=== PATIENT | female | born 1945 | race Caucasian/White ===

== ENCOUNTER 2017-01-10 09:37 | Emergency (ER) | payer SELFPAY ==
[2017-01-10] MEDS ORDERED: Sodium Chloride 0.9% 10 ML Syringe FLUSH PRN (10:08)
--- NOTE | 2017-01-10 10:13 | EDM.PDOC ---
ED HPI GENERAL MEDICAL PROBLEM - General Chief Complaint: Respiratory Problem Stated Complaint: SHORTNESS OF BREATH Time Seen by Provider: 01/10/17 10:10 Source of Information: Reports: Patient, Family, RN Notes Reviewed History Limitations: Reports: No Limitations - History of Present Illness INITIAL COMMENTS - FREE TEXT/NARRATIVE: 71-year-old female presents emergency department day complaint of shortness of breath, she recently had a 17 [place] flight [place] was evaluated in an urgent care about a week ago for a syncopal event, over this past week she has become progressively more short of breath has had palpitations and will get diaphoretic extremely short of breath with any amount of exertion, has been in [place] for 1 day - Related Data Allergies Allergy/AdvReac Type Severity Reaction Status Date / Time No Known Allergies Allergy Verified 01/10/17 10:17 Home Meds: Home Meds NK [No Known Home Meds] 01/10/17 [History] Past Medical History - Past Health History Medical/Surgical History: Denies Medical/Surgical History Social & Family History - Tobacco Use Smoking Status *Q: Heavy Tobacco Smoker ED ROS GENERAL - Review of Systems Review Of Systems: See Below Constitutional: Reports: Fatigue, Diaphoresis HEENT: Reports: No Symptoms Respiratory: Reports: Shortness of Breath. Denies: Cough, Sputum Cardiovascular: Reports: Dyspnea on Exertion, Palpitations. Denies: Chest Pain GI/Abdominal: Reports: No Symptoms : Reports: No Symptoms Musculoskeletal: Reports: No Symptoms Skin: Reports: No Symptoms Neurological: Reports: No Symptoms ED EXAM, GENERAL - Physical Exam Exam: See Below Free Text/Narrative:: General: Female, moderate discomfort secondary to palpitations, alert and oriented x3 HEENT: head is atraumatic normocephalic, eyes pupils equal round reactive to light, sclera clear no conjunctivitis appreciated. Ears blocked by cerumen bilaterally. Nose no septal deviation, nares are clear, no blood present. Mouth mucosa is dry and pink no erythema or exudate noted in soft palate, tongue is midline uvula is midline, dentition is poor. Neck: Supple no thyromegaly no tracheal deviation. Nodes: Cervical nodes subclavicular nodes nontender no palpable lymphadenopathy noted. Lungs: clear to auscultation bilaterally with symmetrical respirations, no adventitious noise appreciated. CV: Tachycardic rate and rhythm S1 and S2 appreciated no murmurs rubs or gallops noted. Abdomen: Soft, nontender, no palpable masses or organomegaly appreciated, no distention no guarding bowel sounds are present, . Neuro: Cranial nerves II through XII grossly intact Skin: Warm and dry, intact Extremities: No lower extremity edema appreciated, Course - Vital Signs Last Recorded V/S: Last Vital Signs Temp 100.2 F 01/10/17 10:12 Pulse 135 H 01/10/17 12:32 Resp 18 01/10/17 12:46 BP 130/70 01/10/17 12:46 Pulse Ox 99 01/10/17 12:46 - Orders/Labs/Meds Orders: Active Orders 24 hr Category Date Time Status Cardiac Monitoring [RC] .As Directed Care 01/10/17 10:08 Active EKG Documentation Completion [RC] ASDIRECTED Care 01/10/17 10:09 Active Peripheral IV Care [RC] . DIRECTED Care 01/10/17 10:08 Active RT Aerosol Therapy [RC] ASDIRECTED Care 01/10/17 12:20 Active LACTATE DEHYDROGENASE,LDH [CHEM] Stat Lab 01/10/17 10:30 Received URIC ACID [CHEM] Stat Lab 01/10/17 10:30 Received Iopamidol [Isovue-370 (76%)] Med 01/10/17 10:45 Active 100 ml IV . DIRECTED Sodium Chloride 0.9% [Normal Saline] 1,000 ml Med 01/10/17 10:15 Active IV ASDIRECTED Sodium Chloride 0.9% [Normal Saline] 1,000 ml Med 01/10/17 10:30 Active IV ASDIRECTED Sodium Chloride 0.9% [Normal Saline] 100 ml Med 01/10/17 10:45 Active IV ASDIRECTED Sodium Chloride 0.9% [Saline Flush] Med 01/10/17 10:08 Active 10 ml FLUSH ASDIRECTED PRN Peripheral IV Insertion Adult [OM.PC] Stat Oth 01/10/17 10:08 Ordered EKG 12 Lead [EK] Stat Ther 01/10/17 10:09 Ordered Medication Orders Sodium Chloride (Normal Saline) 1,000 mls @ 500 mls/hr IV ASDIRECTED NAYLA Last Admin: 01/10/17 10:23 Dose: 500 mls/hr Sodium Chloride (Normal Saline) 1,000 mls @ 500 mls/hr IV ASDIRECTED NAYLA Sodium Chloride (Normal Saline) 100 mls @ 4 mls/sec IV ASDIRECTED NAYLA Last Admin: 01/10/17 11:15 Dose: 4 mls/sec Iopamidol (Isovue-370 (76%)) 100 ml IV . DIRECTED NAYLA Last Admin: 01/10/17 11:15 Dose: 100 ml Sodium Chloride (Saline Flush) 10 ml FLUSH ASDIRECTED PRN PRN Reason: Keep Vein Open Last Admin: 01/10/17 10:24 Dose: 10 ml Labs: Laboratory Tests 01/10/17 01/10/17 01/10/17 Range/Units 10:19 10:19 10:19 WBC 4.6 (4.5-11.0) K/uL RBC 2.73 L (3.30-5.50) M/uL Hgb 8.6 L (12.0-15.0) g/dL Hct 25.2 L (36.0-48.0) % MCV 92 (80-98) fL MCH 32 H (27-31) pg MCHC 34 (32-36) % Plt Count 36 L (150-400) K/uL Add Manual Diff Yes Neutrophils % (Manual) 34 L (36-66) % Band Neutrophils % 2 L (5-11) % Lymphocytes % (Manual) 24 (24-44) % Monocytes % (Manual) 30 H (2-6) % Blast Cells % 10 % Polychromasia PT 12.8 H (9.5-12.0) sec INR 1.19 (0.80-1.20) APTT 35.1 (27.0-36.0) sec D-Dimer, Quantitative > 5000 H (0.0-400.0) ng/mL Puncture Site ABG pH (7.350-7.450) ABG pCO2 (35.0-42.0) mmHg ABG pO2 (75.0-100.0) mmHg ABG HCO3 (22.0-26.0) mmol/L ABG Total CO2 (21.0-25.0) mmol/L ABG O2 Saturation (95.0-98.0) % ABG O2 Content (15.0-23.0) %vol ABG Base Excess mm/L ABG Hemoglobin (12.0-16.0) g/dL ABG Oxyhemoglobin % ABG Carboxyhemoglobin (0.0-1.6) % ABG Methemoglobin % Bernardo Test O2 Delivery Device Sodium (140-148) mmol/L Potassium (3.6-5.2) mmol/L Chloride (100-108) mmol/L Carbon Dioxide (21-32) mmol/L Anion Gap (5.0-14.0) mmol/L BUN (7-18) mg/dL Creatinine (0.6-1.0) mg/dL Est Cr Clr Drug Dosing mL/min Estimated GFR (MDRD) (>60) Glucose (74-106) mg/dL Calcium (8.5-10.1) mg/dL Total Bilirubin (0.2-1.0) mg/dL AST (15-37) U/L ALT (12-78) U/L Alkaline Phosphatase (46-116) U/L Troponin I (0.000-0.056) ng/mL Rri-Z-Dzhgpypimpo Pept (5-125) pg/mL Total Protein (6.4-8.2) g/dL Albumin (3.4-5.0) g/dL Globulin (2.3-3.5) g/dL Albumin/Globulin Ratio (1.2-2.2) 01/10/17 01/10/17 01/10/17 Range/Units 10:19 10:35 12:07 WBC (4.5-11.0) K/uL RBC (3.30-5.50) M/uL Hgb (12.0-15.0) g/dL Hct (36.0-48.0) % MCV (80-98) fL MCH (27-31) pg MCHC (32-36) % Plt Count (150-400) K/uL Add Manual Diff Neutrophils % (Manual) (36-66) % Band Neutrophils % (5-11) % Lymphocytes % (Manual) (24-44) % Monocytes % (Manual) (2-6) % Blast Cells % % Polychromasia PT (9.5-12.0) sec INR (0.80-1.20) APTT (27.0-36.0) sec D-Dimer, Quantitative (0.0-400.0) ng/mL Puncture Site Right radial ABG pH 7.536 H (7.350-7.450) ABG pCO2 26.9 L (35.0-42.0) mmHg ABG pO2 65.4 L (75.0-100.0) mmHg ABG HCO3 22.7 (22.0-26.0) mmol/L ABG Total CO2 21.1 (21.0-25.0) mmol/L ABG O2 Saturation 93.4 L (95.0-98.0) % ABG O2 Content 11.1 L (15.0-23.0) %vol ABG Base Excess 0.8 mm/L ABG Hemoglobin 8.5 L (12.0-16.0) g/dL ABG Oxyhemoglobin 92.6 % ABG Carboxyhemoglobin 0.3 (0.0-1.6) % ABG Methemoglobin 0.6 % Bernardo Test Passed O2 Delivery Device Room air Sodium 133 L (140-148) mmol/L Potassium 2.8 L* (3.6-5.2) mmol/L Chloride 95 L (100-108) mmol/L Carbon Dioxide 24 (21-32) mmol/L Anion Gap 16.8 H (5.0-14.0) mmol/L BUN 19 H (7-18) mg/dL Creatinine 1.2 H (0.6-1.0) mg/dL Est Cr Clr Drug Dosing 37.85 mL/min Estimated GFR (MDRD) 45 L (>60) Glucose 162 H (74-106) mg/dL Calcium 8.4 L (8.5-10.1) mg/dL Total Bilirubin 0.3 (0.2-1.0) mg/dL AST 65 H (15-37) U/L ALT 17 (12-78) U/L Alkaline Phosphatase 69 (46-116) U/L Troponin I 0.038 (0.000-0.056) ng/mL Yri-F-Hjukqtaynke Pept 268 H (5-125) pg/mL Total Protein 6.2 L (6.4-8.2) g/dL Albumin 2.1 L (3.4-5.0) g/dL Globulin 4.1 H (2.3-3.5) g/dL Albumin/Globulin Ratio 0.5 L (1.2-2.2) Meds: Medications Generic Name Dose Route Start Last Admin Trade Name Freq PRN Reason Stop Dose Admin Sodium Chloride 1,000 mls @ 500 mls/hr 01/10/17 10:15 01/10/17 10:23 Normal Saline IV 500 mls/hr ASDIRECTED NAYLA Administration Sodium Chloride 1,000 mls @ 500 mls/hr 01/10/17 10:30 Normal Saline IV ASDIRECTED NAYLA Sodium Chloride 100 mls @ 4 mls/sec 01/10/17 10:45 01/10/17 11:15 Normal Saline IV 4 mls/sec ASDIRECTED NAYLA Administration Iopamidol 100 ml 01/10/17 10:45 01/10/17 11:15 Isovue-370 (76%) IV 100 ml . DIRECTED NAYLA Administration Sodium Chloride 10 ml 01/10/17 10:08 01/10/17 10:24 Saline Flush FLUSH 10 ml ASDIRECTED PRN Administration Keep Vein Open Discontinued Medications Generic Name Dose Route Start Last Admin Trade Name Fahad PRN Reason Stop Dose Admin Albuterol/Ipratropium 3 ml 01/10/17 12:20 01/10/17 12:28 Duoneb 3.0-0.5 Mg/3 Ml NEB 01/10/17 12:21 3 ml ONETIME ONE Administration Lorazepam 1 mg 01/10/17 10:17 01/10/17 10:21 Ativan IVPUSH 01/10/17 10:18 1 mg ONETIME ONE Administration Departure - Departure Time of Disposition: 13:21 Disposition: Admitted As Inpatient 68 Condition: Fair Clinical Impression: Dyspnea Qualifiers: Dyspnea type: dyspnea on exertion Qualified Code(s): R06.09 - Other forms of dyspnea - Discharge Information Forms: ED Department Discharge - My Orders Last 24 Hours: My Active Orders 01/10/17 10:08 Cardiac Monitoring [RC] .As Directed Peripheral IV Care [RC] . DIRECTED Sodium Chloride 0.9% [Saline Flush] 10 ml FLUSH ASDIRECTED PRN Peripheral IV Insertion Adult [OM.PC] Stat 01/10/17 10:09 EKG Documentation Completion [RC] ASDIRECTED EKG 12 Lead [EK] Stat 01/10/17 10:15 Sodium Chloride 0.9% [Normal Saline] 1,000 ml IV ASDIRECTED 01/10/17 10:30 LACTATE DEHYDROGENASE,LDH [CHEM] Stat URIC ACID [CHEM] Stat Sodium Chloride 0.9% [Normal Saline] 1,000 ml IV ASDIRECTED 01/10/17 10:45 Iopamidol [Isovue-370 (76%)] 100 ml IV . DIRECTED Sodium Chloride 0.9% [Normal Saline] 100 ml IV ASDIRECTED 01/10/17 12:20 RT Aerosol Therapy [RC] ASDIRECTED - Assessment/Plan Last 24 Hours: My Active Orders 01/10/17 10:08 Cardiac Monitoring [RC] .As Directed Peripheral IV Care [RC] . DIRECTED Sodium Chloride 0.9% [Saline Flush] 10 ml FLUSH ASDIRECTED PRN Peripheral IV Insertion Adult [OM.PC] Stat 01/10/17 10:09 EKG Documentation Completion [RC] ASDIRECTED EKG 12 Lead [EK] Stat 01/10/17 10:15 Sodium Chloride 0.9% [Normal Saline] 1,000 ml IV ASDIRECTED 01/10/17 10:30 LACTATE DEHYDROGENASE,LDH [CHEM] Stat URIC ACID [CHEM] Stat Sodium Chloride 0.9% [Normal Saline] 1,000 ml IV ASDIRECTED 01/10/17 10:45 Iopamidol [Isovue-370 (76%)] 100 ml IV . DIRECTED Sodium Chloride 0.9% [Normal Saline] 100 ml IV ASDIRECTED 01/10/17 12:20 RT Aerosol Therapy [RC] ASDIRECTED Plan: Assessment Acuity = acute Site and laterality = hypoxic respiratory distress Etiology = unclear etiology Manifestations = dyspnea, tachycardia Location of injury = Home Lab values = hemoglobin low at 8.6 consistent normochromic anemia platelets low at 36 consistent thrombocytopenia WBC show 10% blast cells ABG 7.54 PCO2 26.9 PO2 65.4 bicarbonate 22.7 sodium low at 133 consistent hyponatremia potassium low at 2.8 consistent hypokalemia creatinine elevated at 1.2 consistent with acute renal failure stage GIII a troponin is negative proBNP mildly elevated at 268 albumin low at 2.1 consistent hypoalbuminemia chest x-ray is negative CT scan shows no pulmonary embolism Plan Called discussed case with Dr. Arvizu kindly accepted the patient in transport she is received 1 L of fluids here, 1 DuoNeb she states which did provide some symptomatic relief for her potassium is in the process of being replaced will be transported via EMS ground Patient was in agreement with the plan all questions were answered, . This note was dictated using dragon voice recognition software please call with any questions.
[2017-01-10] MEDS ORDERED: Sodium Chloride 0.9% 1,000 ML IV SCH ×2 (10:15→10:30)
[2017-01-10] MEDS ORDERED: LORazepam 2 MG/ML MDV IVPUSH ONE (10:17)
--- NOTE | 2017-01-10 10:34 | CR ---
Chest 1V Frontal FINDINGS: The heart and vascular structures are normal in appearance. No infiltrates or effusions ar e demonstrated. The skeletal structures are unremarkable. IMPRESSION: Negative exam.
[2017-01-10] MEDS ORDERED: Iopamidol 755 Mg/ML 100 ML Bottle IV SCH (10:45)
[2017-01-10] MEDS ORDERED: Sodium Chloride 0.9% 100 ML IV SCH (10:45)
--- NOTE | 2017-01-10 11:29 | CT ---
Ang Chest HISTORY: Shortness of breath. COMPARISON: None TECHNIQUE: Intravenous contrast was administered, followed by axial imaging from the lung apices ext ending through the hemidiaphragms. 3D Coronal and/or sagittal MIP reconstructions were obtained and reviewed. Total DLP: 406. FINDINGS: The central and segmental pulmonary arteries are well-opacified. There are no filling defe cts. There is no vessel truncation. There are no findings of pulmonary embolism. There is mild subpleural fibrosis anteriorly in the mid lung juarez bilaterally. There are no alveol ar consolidations. There are no pleural effusions. There is no mediastinal or hilar adenopathy. Limi lobo evaluation of the upper abdomen demonstrates no acute findings. There is mild thickening of the left adrenal gland. IMPRESSION: No acute findings of the chest are demonstrated. There are no findings of pulmonary embo lism.
[2017-01-10] MEDS ORDERED: Albuterol/Ipratropium 3.0-0.5 MG/3 ML Neb Soln NEB ONE (12:20)
[2017-01-10] MEDS ORDERED: Potassium Chloride 40 MEQ in Premix Bag 1 BAG IV ONE (13:23)
[2017-01-10] MEDS ORDERED: Potassium Chloride 20 MEQ, Lidocaine 1% 2 ML in Sodium Chloride 0.9% 100 ML IV SCH (14:00)
[2017-01-10 14:31] VITALS: BP 126/68
[2017-01-10] MEDS ORDERED: Acetaminophen 325 MG Tab PO ONE (14:37)
== END 2017-01-10 15:00 ==
LOC: JP.ED 09:37
DX: R06.09 Other forms of dyspnea (principal); F17.200 Nicotine dependence, unspecified, uncomplicated
CPT/HCPCS: 36415; 71010; 71275; 80053; 82803; 83615; 83880; 84484; 84550; 85025; 85379; 85610; 85730; 93005; 94640; 96361; 96374; 99285; A9270; J2060; J3480; J7030; J7040; J7050; J7620; Q9967; 93010